=== PATIENT | female | born 1955 | race Caucasian/White ===

== ENCOUNTER 2020-09-11 17:06 | Emergency (ER) | payer OTHER ==
[2020-09-11 19:13] LABS: Absolute Lymphocytes (CBC) 0.7 K/uL (0.7-4.9); Basophils % 0.1 % (0-1.3); Hematocrit 34.1 % (36.0-45.0); Lymphocytes % 9.9 % (15.3-44.8); MPV 8.3 fL (7.6-11.3); RBC Red Blood Cell Count 3.86 M/uL (3.86-4.86)
[2020-09-11 19:32] LABS: Albumin 3.2 g/dL (3.4-5.0); Bilirubin Direct 0.2 mg/dL (0-0.2); Bilirubin Total 0.4 mg/dL (0.2-1.0); Potassium 4.7 mmol/L (3.5-5.1); Protein, Total 6.8 g/dL (6.4-8.2)
[2020-09-11] MEDS ORDERED: NA CHLORIDE 0.9% 250 ML ONE (19:51)
[2020-09-11] MEDS ORDERED: PANTOPRAZOLE 40 MG INJ ONE (19:51)
--- NOTE | 2020-09-11 20:07 | RAD REPORT ---
EXAM DESCRIPTION: CTAbdomen Pelvis W Contrast - 09/11/2020 7:55 pm CLINICAL HISTORY: Abdominal pain. ABD PAIN COMPARISON: No comparisons TECHNIQUE: Biphasic CT imaging of the abdomen and pelvis was performed with 100 ml non-ionic IV cont rast. All CT scans are performed using dose optimization technique as appropriate and may include automated exposure control or mA/KV adjustment according to patient size. FINDINGS: Mild ground-glass opacities are seen in both lung bases in the periphery. Mild diffuse fatty liver is present. The gallbladder is mildly distended. The, pancreas, kidneys with in normal limits. Tiny right renal cyst is seen, benign. 15 mm right adrenal mass is noted, 13 mm lef t adrenal mass present as well. Most likely these are adenomas. No bowel obstruction, free air, free fluid or abscess. Mild colonic diverticulosis is present without diverticulitis. The appendix is not identified as a discrete structure, however, no secondary findin gs of appendicitis are identified. No evidence of significant lymphadenopathy. Aortoiliac atheroscl erosis. No suspicious bony findings. IMPRESSION: Ground-glass opacity in the lung bases are nonspecific but has been described in COVID-1 9 infection. Gallbladder distention is present. Followup gallbladder ultrasound would be suggested. Mild diffuse fatty liver. Bilateral adrenal masses are nonspecific but probably benign adenomas. Diverticulosis coli without diverticulitis.
[2020-09-11] MEDS ORDERED: NA CHLORIDE 0.9% 1,000 ML ONE (20:16)
[2020-09-11 20:17] LABS: Magnesium 2.5 mg/dL (1.8-2.4); NT PRO-BNP 185 pg/mL (<125); Troponin (Emerg Dept Use Only) < 0.02 ng/mL (0.0-0.045)
--- NOTE | 2020-09-11 20:35 | RAD REPORT ---
EXAM DESCRIPTION: RAD - Chest Single View - 09/11/2020 8:04 pm CLINICAL HISTORY: COUGH Chest pain. COMPARISON: <Comparisons> FINDINGS: Portable technique limits examination quality. Interstitial lung markings are mildly prominent which could indicate a viral infection. The heart is normal in size. No displaced fractures.
[2020-09-12 02:30] LABS: Hematocrit 26.7 % (36.0-45.0)
[2020-09-12 06:34] LABS: Hematocrit 25.3 % (36.0-45.0)
--- NOTE | 2020-09-12 08:35 | EDPHYS ---
Physician Documentation [facility] Name: Monika Palacios Age: 65 yrs Sex: Female : 1955 Arrival Date: 09/11/2020 Time: 17:09 Bed 7 Private MD: ED Physician Mamadou Barnes HPI: 09/11 20:25 This 65 yrs old Female presents to ER via Wheelchair with complaints of jr8 Black/Tarry Stools, Nausea. 20:25 The patient presents to the emergency department with rectal bleeding, a moderate jr8 amount, melena, with multiple such episodes. Onset: The symptoms/episode began/occurred acutely, this morning. Abdominal pain: none is appreciated. Modifying factors: The symptoms are alleviated by nothing, the symptoms are aggravated by nothing. Associated signs and symptoms: Pertinent positives: dizziness when standing. Severity of symptoms: At their worst the symptoms were moderate in the emergency department the symptoms are unchanged. The patient has experienced a previous episode. The patient has not recently seen a physician. This is a 65-year-old female that presented to the emergency room for dizzy and dark tarry stools that started early this morning. Patient stated that she has had this once before and required several pints of blood and a upper endoscopy for clipping for a bleeding upper stomach.. Historical: - Allergies: 18:32 Sulfa (Sulfonamide Antibiotics); kg - Home Meds: 18:32 None [Active]; kg - PMHx: 18:32 AAA; kg 09/12 07:00 GI bleed March 2019; aa5 - PSHx: 09/11 18:32 Plate right leg; kg - Immunization history:: Adult Immunizations not immunized, Client reports having NOT received the Covid vaccine. - Social history:: Smoking status: Patient reports the use of cigarette tobacco products, smokes one-half pack cigarettes per day. ROS: 20:25 Eyes: Negative for injury, pain, redness, and discharge, ENT: Negative for injury, jr8 pain, and discharge, Neck: Negative for injury, pain, and swelling, Cardiovascular: Negative for chest pain, palpitations, and edema, Respiratory: Negative for shortness of breath, cough, wheezing, and pleuritic chest pain, Back: Negative for injury and pain, MS/Extremity: Negative for injury and deformity, Skin: Negative for injury, rash, and discoloration. 20:25 Abdomen/GI: Positive for nausea, black/tarry stool, Negative for abdominal pain, vomiting, hematemesis. 20:25 Neuro: Positive for dizziness, near syncope. Exam: 20:25 ENT: Nares patent. No nasal discharge, no septal abnormalities noted. Tympanic jr8 membranes are normal and external auditory canals are clear. Oropharynx with no redness, swelling, or masses, exudates, or evidence of obstruction, uvula midline. Mucous membranes moist. Neck: Trachea midline, no thyromegaly or masses palpated, and no cervical lymphadenopathy. Supple, full range of motion without nuchal rigidity, or vertebral point tenderness. No Meningismus. 20:25 Respiratory: Lungs have equal breath sounds bilaterally, clear to auscultation and percussion. No rales, rhonchi or wheezes noted. No increased work of breathing, no retractions or nasal flaring. Abdomen/GI: Soft, non-tender, with normal bowel sounds. No distension or tympany. No guarding or rebound. No evidence of tenderness throughout. Back: No spinal tenderness. No costovertebral tenderness. Full range of motion. MS/ Extremity: Pulses equal, no cyanosis. Neurovascular intact. Full, normal range of motion. Neuro: Awake and alert, GCS 15, oriented to person, place, time, and situation. Cranial nerves II-XII grossly intact. Motor strength 5/5 in all extremities. Sensory grossly intact. 20:25 Constitutional: The patient appears alert, awake, obviously ill. 20:25 Cardiovascular: Rate: tachycardic, Rhythm: regular, Pulses: Pulses are 2+ in right radial artery and left radial artery. 20:25 Skin: Appearance: Color: pale, Temperature: cool. Vital Signs: 18:29 BP 84 / 56; Pulse 127; Resp 29; Pulse Ox 100% ; Weight 88.9 kg; Height 5 ft. 11 in. kg (180.34 cm); Pain 0/10; 19:20 BP 101 / 75; Pulse 122; Resp 18; Pulse Ox 100% on R/A; lp1 20:00 BP 90 / 57; Pulse 109; Resp 19; Pulse Ox 100% on R/A; jb4 20:20 BP 110 / 77; Pulse 103; Resp 17; Pulse Ox 100% on R/A; jb4 21:30 BP 106 / 71; Pulse 103; Resp 20; Pulse Ox 100% on R/A; lp1 22:00 BP 110 / 71; Pulse 104; Resp 17; Pulse Ox 100% on R/A; lp1 22:30 BP 104 / 74; Pulse 103; Resp 20; Pulse Ox 98% on R/A; lp1 23:00 BP 115 / 81; Pulse 109; Resp 17; Pulse Ox 100% on R/A; lp1 23:30 BP 99 / 63; Pulse 105; Resp 20; Pulse Ox 98% on R/A; lp1 08 00:00 BP 97 / 73; Pulse 104; Resp 18; Temp 98.9(O); Pulse Ox 98% on R/A; lp1 01:00 BP 107 / 77; Pulse 104; Resp 20; Pulse Ox 96% on R/A; lp1 02:15 BP 113 / 74; Pulse 94; Resp 20; Pulse Ox 97% on R/A; lp1 03:00 BP 110 / 69; Pulse 92; Resp 19; Pulse Ox 98% on R/A; lp1 04:30 BP 113 / 71; Pulse 88; Resp 20; Pulse Ox 96% on R/A; lp1 05:15 BP 97 / 67; Pulse 87; Resp 19; Pulse Ox 96% on R/A; lp1 06:45 BP 103 / 62; Pulse 97; Resp 13; Pulse Ox 100% on R/A; lp1 07:30 BP 110 / 72; Pulse 96; Resp 16 S; Temp 98.0(TE); Pulse Ox 98% on R/A; aa5 08:15 BP 100 / 74; Pulse 82; Resp 16 S; Pulse Ox 97% on R/A; aa5 09:50 BP 110 / 67; Pulse 80; Resp 18 S; Pulse Ox 97% on R/A; aa5 11:05 BP 106 / 69; Pulse 87; Resp 16; Pulse Ox 100% on R/A; aa5 12:30 BP 110 / 65; Pulse 91; Resp 16 S; Temp 99.4(TE); Pulse Ox 100% on R/A; aa5 12:48 BP 116 / 66; Pulse 88; Resp 18 S; Temp 99.5(TE); Pulse Ox 100% on R/A; aa5 09/11 18:29 Body Mass Index 27.34 (88.90 kg, 180.34 cm) kg MDM: 09/11 18:47 Patient medically screened. [facility] 21:51 Data reviewed: vital signs, nurses notes, lab test result(s), EKG, radiologic studies, [facility] CT scan, plain films. Data interpreted: Pulse oximetry: on room air is 100 %. Interpretation: normal. Counseling: I had a detailed discussion with the patient and/or guardian regarding: the historical points, exam findings, and any diagnostic results supporting the discharge/admit diagnosis, lab results, radiology results, the need to transfer to another facility, [facility] does not immediately have the required specialist. Transition of care: After a detail discussion of the patient's case, care is transferred to Robbie Jean MD. 23:02 ED course: Patient not in any distress. Notified patient we do not have G. I. available pkl this weekend. Attempts to transfer to facilities with G. I. capability unsuc.cessful . 09/12 08:33 Differential diagnosis: Nonspecific abd pain, gastritis, pancreatitis, appendicitis, lary viral gastroenteritis, gastroenteritis. Test interpretation: by ED physician or midlevel provider: ECG, plain radiologic studies. 09/11 18:35 Order name: CBC with Diff; Complete Time: 19:16 kg 09/11 18:35 Order name: Hepatic Function; Complete Time: 19:40 kg 09/11 18:35 Order name: Lipase; Complete Time: 19:40 kg 09/11 18:35 Order name: T\T\S kg 09/11 18:35 Order name: Basic Metabolic Panel; Complete Time: 19:40 [facility] 09/11 18:51 Order name: Glucose, Ancillary Testing; Complete Time: 19:03 [facility] 09/11 19:28 Order name: Magnesium [facility] 09/11 19:28 Order name: NT PRO-BNP; Complete Time: 20:21 [facility] 09/11 19:28 Order name: PT-INR; Complete Time: 20:08 [facility] 09/11 19:28 Order name: Troponin (emerg Dept Use Only); Complete Time: 20:21 [facility] 09/11 19:28 Order name: Magnesium; Complete Time: 20:21 [facility] 09/11 19:59 Order name: Antibody Identification [facility] 09/11 19:18 Order name: XRAY Chest (1 view); Complete Time: 20:49 [facility] 09/11 19:40 Order name: CT Abd/Pelvis - IV Contrast Only; Complete Time: 20:08 8 09/11 20:09 Order name: Hemoglobin [facility] 09/11 20:10 Order name: Hemoglobin; Complete Time: 20:48 EDMS 09/11 21:11 Order name: SARS-COV-2 RT PCR; Complete Time: 21:39 EDMS 09/11 21:28 Order name: ABO/RH no charge; Complete Time: 21:39 EDMS 09/11 22:01 Order name: Hemoglobin; Complete Time: 22:36 [facility] 09/12 02:16 Order name: Hemoglobin; Complete Time: 03:26 lp1 09/12 02:16 Order name: Hematocrit; Complete Time: 03:26 lp1 09/12 05:19 Order name: Hemoglobin; Complete Time: 07:15 lp1 07 05:19 Order name: Hematocrit; Complete Time: 07:15 lp1 09/12 11:53 Order name: Packed RBCs (Additional Unit) [facility] 09/11 18:35 Order name: IV Saline Lock; Complete Time: 19:06 kg 09/11 18:35 Order name: Labs collected and sent; Complete Time: 19:06 kg 09/11 19:28 Order name: EKG; Complete Time: 19:29 8 09/11 19:28 Order name: Cardiac monitoring; Complete Time: 19:40 8 09/11 19:28 Order name: EKG - Nurse/Tech; Complete Time: 20:40 8 09/11 19:28 Order name: O2 Per Protocol; Complete Time: 19:40 [facility] 09/11 19:28 Order name: O2 Sat Monitoring; Complete Time: 19:40 jr8 Administered Medications: 09/11 19:50 Drug: ProTONIX (pantoprazole) 40 mg Route: IVP; Site: right antecubital; 4 19:50 Drug: ProTONIX (pantoprazole) 8 mg/hr Route: IV; Rate: 25 ml/hr; Site: right jb4 antecubital; 09/12 09:10 Follow up: IV Status: Infusion continued aa5 13:00 Follow up: IV Status: Infusion continued upon transfer aa5 09/11 20:10 Drug: NS 0.9% 1000 ml Route: IV; Rate: 1000 ml; Site: right antecubital; 4 09/12 09:10 Drug: NS 0.9% 500 ml Route: IV; Rate: bolus; Site: right antecubital; aa5 10:00 Follow up: IV Status: Completed infusion; IV Intake: 500ml 09:10 Drug: NS 0.9% 1000 ml Route: IV; Rate: 125 ml/hr; Site: right antecubital; aa5 13:00 Follow up: IV Status: Order to discontinue infusion 09:10 Drug: ProTONIX (pantoprazole) 40 mg Route: IVP; Site: right antecubital; aa5 09:20 Follow up: Response: No adverse reaction aa5 Disposition: 08:32 Co-signature as Attending Physician, Mamadou Barnes MD I agree with the assessment and lary plan of care. Disposition Summary: 09/12/20 10:34 Transfer Ordered Transfer Location: [facility] lary Reason: Higher level of care lary Condition: Stable(09/12/20 10:34) lary Problem: new(09/12/20 10:34) lary Symptoms: have improved(09/12/20 10:34) lary Accepting Physician: to [facility](09/12/20 13:21) aa5 Diagnosis - GI Bleed/ Gastrointestinal hemorrhage, unspecified - upper(09/12/20 10:34) lary - Anemia, unspecified(09/12/20 10:34) lary - Weakness lary - Pneumonia due to SARS-associated coronavirus - covid 19 lary - Hypotension, unspecified - resolved lary Forms: - Medication Reconciliation Form lary - SBAR form lary Signatures: Dispatcher [employer] EDWA Mamadou Barnes MD MD cha Lam, Pin, MD MD pkl Calderon, Audri, RN RN aa5 Lyle Cancino PA PA jr8 Shar Dee, ELECTRONIC HEALTH RECORDS SPECIALIST-C ELECTRONIC HEALTH RECORDS SPECIALIST-Cla1 Jaime Larry, RN RN jb4 Aparna Cerda, MAMIE RN kg Corrections: (The following items were deleted from the chart) 09/11 19:49 18:36 BASIC METABOLIC PANEL+C.LAB.BRZ ordered. [facility] 09/12 10:31 08:34 Inpatient Admission lary lary 10:31 08:34 Joey Del Angel lary lary 10:31 08:34 Telemetry/MedSurg (Inpatient) lary lary : 08:34 Stable lary lary : 08:34 new lary lary : 08:34 have improved lary [facility] 08:34 Standard lary [facility] 08:34 lary lary : 08:34 GI Bleed/ Gastrointestinal hemorrhage, unspecified - upper lary [facility] : 08:34 Anemia, unspecified lary [facility] : 08:34 Tobacco abuse counseling [facility] 08:34 Tobacco use [facility] 09:23 Coronavirus infection, unspecified - COVID 19 [facility] 13:21 10:34 to [facility] lary aa5 13:26 08/06 07:30 PMHx: GI bleed March 2019; aa5 aa5
--- NOTE | 2020-09-12 08:35 | ER ---
Nurse's Notes [facility] Name: Monika Palacios Age: 65 yrs Sex: Female : 1955 Arrival Date: 09/11/2020 Time: 17:09 Bed 7 Private MD: Diagnosis: GI Bleed/ Gastrointestinal hemorrhage, unspecified-upper;Anemia, unspecified;Weakness;Pneumonia due to SARS-associated coronavirus-covid 19;Hypotension, unspecified-resolved Presentation: 09/11 18:29 Chief complaint: Patient states: Black tarry stools starting at 0200 dizziness. Pt kg stated shes had a AAA and had the same symptoms. Coronavirus screen: Client denies travel out of the [place] in the last 14 days. At this time, unable to obtain information related to travel outside the [place] Client presents with at least one sign or symptom that may indicate coronavirus-19. Standard/surgical mask placed on the client. Provider contacted for isolation considerations. Ebola Screen: Patient negative for fever greater than or equal to 101.5 degrees Fahrenheit, and additional compatible Ebola Virus Disease symptoms Patient denies exposure to infectious person. Patient denies travel to an Ebola-affected area in the 21 days before illness onset. Initial Sepsis Screen: Does the patient meet any 2 criteria? No. Patient's initial sepsis screen is negative. Does the patient have a suspected source of infection? No. Patient's initial sepsis screen is negative. Risk Assessment: Do you want to hurt yourself or someone else? Patient reports no desire to harm self or others. Onset of symptoms was September 11, 2020 at 02:00. 18:29 Method Of Arrival: Wheelchair kg 18:29 Acuity: KAVITA 2 kg Triage Assessment: 18:31 General: Appears in no apparent distress. Behavior is calm, cooperative, appropriate kg for age, quiet. Pain: Denies pain. GI: Reports diarrhea, bloody stool. Historical: - Allergies: 18:32 Sulfa (Sulfonamide Antibiotics); kg - Home Meds: 18:32 None [Active]; kg - PMHx: 18:32 AAA; kg 09/12 07:00 GI bleed March 2019; aa5 - PSHx: 09/11 18:32 Plate right leg; kg - Immunization history:: Adult Immunizations not immunized, Client reports having NOT received the Covid vaccine. - Social history:: Smoking status: Patient reports the use of cigarette tobacco products, smokes one-half pack cigarettes per day. Screenin:31 Abuse screen: Denies threats or abuse. Denies injuries from another. Nutritional kg screening: No deficits noted. Tuberculosis screening: No symptoms or risk factors identified. Fall Risk None identified. No fall in past 12 months (0 pts). No secondary diagnosis (0 pts). IV access (20 points). Ambulatory Aid- None/Bed Rest/Nurse Assist (0 pts). Gait- Weak (10 pts.). Mental Status- Oriented to own ability (0 pts). Total Crooks Fall Scale indicates No Risk (0-24 pts). Assessment: 19:02 General: Appears in no apparent distress. ill, Behavior is cooperative. Pain: Denies iw pain. Neuro: Level of Consciousness is awake, alert, obeys commands, Oriented to person, place, time, situation. Respiratory: Respiratory effort is even, unlabored, Respiratory pattern is regular. GI: Abdomen is non-distended, Reports bloody stool. Derm: Skin is pale. 19:20 Reassessment: Assisted patient to bsc. lp1 19:20 Neuro: Level of Consciousness is awake, alert, obeys commands. Respiratory: Respiratory lp1 effort is even, unlabored. Derm: Skin is intact, Skin is dry, Skin is pale. 20:00 Reassessment: Patient appears in no apparent distress at this time. Patient and/or jb4 family updated on plan of care and expected duration. Pain level reassessed. Patient is alert, oriented x 3, equal unlabored respirations, skin warm/dry/pink. 22:18 Reassessment: received verbal order for Q4h HGB checks. jb4 23:45 Reassessment: Assisted patient to bsc to void; steady gait;. lp1 09/12 01:00 Reassessment: Patient appears in no apparent distress at this time. Patient and/or lp1 family updated on plan of care and expected duration. Pain level reassessed. Patient resting, eyes closed, respirations even, unlabored. 02:34 Reassessment: Assisted patient to bsc to void. lp1 04:00 Reassessment: Patient appears in no apparent distress at this time. Patient and/or lp1 family updated on plan of care and expected duration. Pain level reassessed. Patient resting, eyes closed, respirations even, unlabored. 05:45 Reassessment: Assisted patient to bsc, small BM noted, dark red in color. lp1 08:00 General: Appears comfortable, Behavior is calm, cooperative. Pain: Denies pain. Neuro: aa5 Level of Consciousness is awake, alert, obeys commands, Oriented to person, place, time, situation. Cardiovascular: Patient's skin is warm and dry. Rhythm is sinus rhythm. Respiratory: Airway is patent Respiratory effort is even, unlabored, Respiratory pattern is regular, symmetrical. Respiratory: Airway is patent Respiratory effort is even, unlabored, Respiratory pattern is regular, symmetrical. GI: Abdomen is round non-distended, Bowel sounds present X 4 quads. Abd is soft and non tender X 4 quads. Reports bloody stool, Patient currently denies nausea, vomiting. : No signs and/or symptoms were reported regarding the genitourinary system. EENT: No signs and/or symptoms were reported regarding the EENT system. Derm: Skin is pink, warm \T\ dry. Musculoskeletal: Range of motion: intact in all extremities. 08:00 Reassessment: Pending possible transfer, pt verbalizes understanding. . aa5 09:10 Reassessment: Patient is alert, oriented x 3, equal unlabored respirations, skin aa5 warm/dry/pink. 11:00 Reassessment: Report given to [facility] with [facility]. . aa5 11:14 Reassessment: RBC consent form signed by pt (see pt's chart). Contacted blood blank and aa5 Tiffanie states she remains awaiting blood from outside source due to pt having antibodies and was told blood will be here soon. Will attempt to start RBC unit 1 before transfer. Awaiting EMS for transfer at this time, ETA 1 hr. . 11:15 Reassessment: Patient is alert, oriented x 3, equal unlabored respirations, skin aa5 warm/dry/pink. Pt notified of wait time for transfer. . 12:48 Reassessment: RBC unit 1 started at 1233, no adverse reactions noted, lungs CTA. See aa5 blood transfusion record in pt's chart for more information. . 12:50 Reassessment: [facility] at bedside, report given and blood checked for transfer. . aa5 Vital Signs: 09/11 18:29 BP 84 / 56; Pulse 127; Resp 29; Pulse Ox 100% ; Weight 88.9 kg; Height 5 ft. 11 in. kg (180.34 cm); Pain 0/10; 19:20 BP 101 / 75; Pulse 122; Resp 18; Pulse Ox 100% on R/A; lp1 20:00 BP 90 / 57; Pulse 109; Resp 19; Pulse Ox 100% on R/A; jb4 20:20 BP 110 / 77; Pulse 103; Resp 17; Pulse Ox 100% on R/A; jb4 21:30 BP 106 / 71; Pulse 103; Resp 20; Pulse Ox 100% on R/A; lp1 22:00 BP 110 / 71; Pulse 104; Resp 17; Pulse Ox 100% on R/A; lp1 22:30 BP 104 / 74; Pulse 103; Resp 20; Pulse Ox 98% on R/A; lp1 23:00 BP 115 / 81; Pulse 109; Resp 17; Pulse Ox 100% on R/A; lp1 23:30 BP 99 / 63; Pulse 105; Resp 20; Pulse Ox 98% on R/A; lp1 09/12 00:00 BP 97 / 73; Pulse 104; Resp 18; Temp 98.9(O); Pulse Ox 98% on R/A; lp1 01:00 BP 107 / 77; Pulse 104; Resp 20; Pulse Ox 96% on R/A; lp1 02:15 BP 113 / 74; Pulse 94; Resp 20; Pulse Ox 97% on R/A; lp1 03:00 BP 110 / 69; Pulse 92; Resp 19; Pulse Ox 98% on R/A; lp1 04:30 BP 113 / 71; Pulse 88; Resp 20; Pulse Ox 96% on R/A; lp1 05:15 BP 97 / 67; Pulse 87; Resp 19; Pulse Ox 96% on R/A; lp1 06:45 BP 103 / 62; Pulse 97; Resp 13; Pulse Ox 100% on R/A; lp1 07:30 BP 110 / 72; Pulse 96; Resp 16 S; Temp 98.0(TE); Pulse Ox 98% on R/A; aa5 08:15 BP 100 / 74; Pulse 82; Resp 16 S; Pulse Ox 97% on R/A; aa5 09:50 BP 110 / 67; Pulse 80; Resp 18 S; Pulse Ox 97% on R/A; aa5 11:05 BP 106 / 69; Pulse 87; Resp 16; Pulse Ox 100% on R/A; aa5 12:30 BP 110 / 65; Pulse 91; Resp 16 S; Temp 99.4(TE); Pulse Ox 100% on R/A; aa5 12:48 BP 116 / 66; Pulse 88; Resp 18 S; Temp 99.5(TE); Pulse Ox 100% on R/A; aa5 09/11 18:29 Body Mass Index 27.34 (88.90 kg, 180.34 cm) kg ED Course: 09/11 17:09 Patient arrived in ED. as 18:31 Triage completed. kg 18:32 Arm band placed on right wrist. kg 18:47 Lyle Cancino PA is PHCP. jr8 18:47 Dave Calvillo MD is Attending Physician. jr8 19:06 Inserted saline lock: 20 gauge in right antecubital area, using aseptic technique. iw 19:29 Anna Marie Novak, RN is Primary Nurse. lp1 19:40 Patient has correct armband on for positive identification. Placed in gown. Bed in low lp1 position. Side rails up X2. quality assurance monitor on. Pulse ox on. NIBP on. 19:55 CT Abd/Pelvis - IV Contrast Only In Process Unspecified. EDMS 20:04 XRAY Chest (1 view) In Process Unspecified. EDMS 20:57 Initiated transfer at [facility] with Eliana Sung. Stated she would do a bed check and tt3 call back. 21:13 Eliana called and stated that [facility] [place] potential campus would tt3 be [facility]. Stated she would check beds at [facility]. 21:18 Updated Eliana on pt covid result. Was informed there were no covid beds in the [address] system so the transfer request would be denied. 21:22 Initiated transfer at [facility] with Kalie. Was informed all campuses are at capacity so the tt3 request would be denied. 21:39 Initiated transfer at [facility] with Dominick Norman. Was informed all campuses are at tt3 capacity. 21:47 Attending Physician role handed off by Dave Calvillo MD pkl 21:47 Robbie Jean MD is Attending Physician. pkl 21:52 Initiated transfer at [facility] with Eliz Callahan. Stated she would do a bed tt3 check and call back. 09/12 07:26 Attending Physician role handed off by Robbie Jean MD [facility] 07:26 Mamadou Barnes MD is Attending Physician. lary 08:33 Joey Del Angel DO is Hospitalizing Provider. lary 08:36 Primary Nurse role handed off by Anna Marie Novak RN eb 09:25 transfer initiated with Jason Brink Rn from the [facility] at the eb request of Dr. Del Angel. 09:30 Karla Rich, MAMIE is Primary Nurse. aa5 10:23 connected the hospitalist and the GI touring production manager for [facility] with Dr. Barnes for eb patient transfer consultation. 13:00 No provider procedures requiring assistance completed. Patient transferred, IV remains aa5 in place. Administered Medications: 09/11 19:50 Drug: ProTONIX (pantoprazole) 40 mg Route: IVP; Site: right antecubital; [facility] 19:50 Drug: ProTONIX (pantoprazole) 8 mg/hr Route: IV; Rate: 25 ml/hr; Site: right jb4 antecubital; 09/12 09:10 Follow up: IV Status: Infusion continued aa5 13:00 Follow up: IV Status: Infusion continued upon transfer aa5 09/11 20:10 Drug: NS 0.9% 1000 ml Route: IV; Rate: 1000 ml; Site: right antecubital; 4 09/12 09:10 Drug: NS 0.9% 500 ml Route: IV; Rate: bolus; Site: right antecubital; aa5 10:00 Follow up: IV Status: Completed infusion; IV Intake: 500ml aa5 09:10 Drug: NS 0.9% 1000 ml Route: IV; Rate: 125 ml/hr; Site: right antecubital; aa5 13:00 Follow up: IV Status: Order to discontinue infusion aa5 09:10 Drug: ProTONIX (pantoprazole) 40 mg Route: IVP; Site: right antecubital; aa5 09:20 Follow up: Response: No adverse reaction aa5 Intake: 10:00 IV: 500ml; Total: 500ml. aa5 Outcome: 08:34 Decision to Hospitalize by Provider. lary 10:34 ER care complete, transfer ordered by MD. lary 13:15 Transferred by ground EMS to [facility], Transfer form completed. aa5 X-rays sent w/ patient. Note: Report given to [facility] 13:15 Condition: stable 13:15 Instructed on the need for transfer, Demonstrated understanding of instructions. 13:21 Patient left the ED. aa5 Signatures: Dispatcher [employer] EDMamadou Odom MD MD cha Lam, Pin, MD MD pkl Martinez, Amelia as Williams, Irene, MAMIE RN iw Karla Rich RN RN aa5 Anna Marie Novak RN RN lp1 Lyle Cancino PA PA 8 Jaime Larry RN RN jb4 Ara Herrera Tyler tt3 Aparna Cerda RN RN kg Corrections: (The following items were deleted from the chart) 09/11 18:41 18:29 Acuity: KAVITA 3 kg kg 21:22 21:20 Updated Eliana on pt covid result. Was informed there were no covid beds in the 3 [facility] system so the transfer request would be denied. tt3 09/12 02:48 00:00 BP 97 / 73; Pulse 104bpm; Resp 18bpm; Pulse Ox 98% RA; Temp 97.7F Oral; lp1 lp1 04:45 09/11 19:20 Reassessment: Assisted patient to [facility] lp1 09/12 13:25 12:48 Reassessment: RBC unit 1 started at 1233, no adverse reactions noted, lungs CTA. aa5 . aa5 13:26 09/11 07:30 PMHx: GI bleed March 2019; aa5 aa5
[2020-09-12] MEDS ORDERED: PANTOPRAZOLE INJ 80 MG in NA CHLORIDE 0.9% 250 ML IV SCH (09:00)
[2020-09-12] MEDS ORDERED: NA CHLORIDE 0.9% 1,000 ML ONE (09:17)
[2020-09-12] MEDS ORDERED: NA CHLORIDE 0.9% 500 ML ONE (09:17)
[2020-09-12] MEDS ORDERED: PANTOPRAZOLE 40 MG INJ ONE (09:17)
[2020-09-12] MEDS ORDERED: NA CHLORIDE 0.9% 250 ML ONE (12:13)
[2020-09-12 14:01] VITALS: O2SAT 100
[2020-09-12 14:05] VITALS: BP 116/66; TEMP 99.5
--- NOTE | 2020-09-13 08:03 | EKG ---
Test Date: 2020-09-11 Test Time: 20:27:51 Barrel Assembler: BOBY MEASUREMENT RESULTS: Intervals: Rate: 103 NV: 154 QRSD: 80 QT: 354 QTc: 463 Hartman: P: 21 NV: 154 QRS: -56 T: 25 INTERPRETIVE STATEMENTS: Sinus tachycardia Left anterior fascicular block Nonspecific ST abnormality Abnormal ECG No previous ECG available for comparison Electronically Signed On 09-13-20 08:00:32 CDT by Rafael Hidalgo
== END 2020-09-12 13:21 | disposition short-term general hospital (02) ==
LOC: ER 17:06
PROC: 30233N1 Transfusion of Nonautologous Red Blood Cells into Peripheral Vein, Percutaneous Approach (ICD-10-PCS; principal; 2020-09-12)
DX: U07.1 COVID-19 (principal); J12.82 Pneumonia due to coronavirus disease 2019; D64.9 Anemia, unspecified; K92.2 Gastrointestinal hemorrhage, unspecified; F17.210 Nicotine dependence, cigarettes, uncomplicated; Z88.2 Allergy status to sulfonamides
CPT/HCPCS: 96365; 96361; 93005; 85025; 80048; 36415; 86900; 83735; 86850; 85610; 86870; 86901; 82947; 80076; 85018 ×4; 85014 ×2; 84484; 83690; 86922; 83880; 74177; 71045; 99285; 96366; 36430; U0003; Q9967; C9113 ×3; P9016; J7050 ×2; J7040; J7030 ×2